=== PATIENT | female | born 1985 | race Caucasian/White ===

== ENCOUNTER → 2016-08-01 | Outpatient (CLI) | payer OTHER | LOC: FIMAGING 12:29 | PROVIDERS: ATTEND Family Medicine | DX: E04.9 Nontoxic goiter, unspecified (principal); E04.1 Nontoxic single thyroid nodule; R59.0 Localized enlarged lymph nodes ==

== ENCOUNTER → 2016-09-06 | Outpatient (CLI) | payer OTHER ==
[~2016-09-06] MED LIST: NA BICARBONATE 50 MEQ/50 ML VIAL ONE
== END ==
LOC: FIMAGING 12:20
PROVIDERS: ATTEND Otolaryngology
DX: E01.0 Iodine-deficiency related diffuse (endemic) goiter (principal)